=== PATIENT | female | born 1990 | race African-American/Black ===

== ENCOUNTER 2018-02-06 06:13 | Inpatient (IN) | payer OTHER, SELFPAY ==
[2018-02-06] MEDS ORDERED: Ondansetron HCl/PF 4 MG/2 ML Vial IVP PRN (07:01)
[2018-02-06] MEDS ORDERED: Ibuprofen 800 MG TAB PO PRN (07:01)
[2018-02-06] MEDS ORDERED: HYDROcodone/Acetaminophen 5/325 mg Tablet PO PRN ×2 (07:01)
[2018-02-06] MEDS ORDERED: Lidocaine 1% (PF) 30 ML VIAL SC PRN (07:01)
[2018-02-06] MEDS ORDERED: LR / Pitocin 40 units/1000 ml 1,000 ML IV PRN (07:01)
[2018-02-06] MEDS ORDERED: Lactated Ringer's 1,000 ML IV SCH ×2 (07:15)
[2018-02-06] MEDS ORDERED: Lidocaine 1% (PF) 30 ML VIAL ONE (07:18)
[2018-02-06] MEDS ORDERED: LR / Pitocin 40 units/1000 ml 1,000 ML ONE (07:18)
[2018-02-06 07:24] VITALS: BMI 30.1
[2018-02-06 07:33] LABS: Mean Corpuscular HGB CONC 33.5 g/dL (32.0-36.0); Mean Corpuscular Hemoglobin 28.6 pg (27.0-31.0); Mean Corpuscular Volume 85.2 fl (81.0-99.0); Mean Platelet Volume 7.7 fL (7.4-10.4); Platelet Count 197 thou/uL (130-400); RBC Distribution Width 12.3 % (11.5-14.5); Red Blood Cell (RBC) Count 3.84 mill/uL (4.20-5.40)
[2018-02-06 08:06] LABS: Syphilis Antibody Nonreactive (Nonreactive)
[2018-02-06 08:07] LABS: HBSAg Index 0.18 S/CO (0-0.99); Hep B Surf Ag Non-Reactive S/CO (NonReactive)
--- NOTE | 2018-02-06 08:50 | PDOC.LDHP ---
Labor and Delivery H&P Chief complaint: contractions HPI: 27 yo G1 @ 37w6d by 8 week sono who presents in active labor. Antepartum course benign. Current gestational age (weeks): 37 Due date: 02/21/18 Dating criteria: first trimester ultrasound Grav: 1 Para: 0 Current complications: none Abnormal US findings: No Current medications: pre- vitamins Previous surgical history: none Allergies/Adverse Reactions: Allergies Allergy/AdvReac Type Severity Reaction Status Date / Time amoxicillin [From Augmentin] Allergy Verified 02/06/18 07:13 clavulanic acid Allergy Verified 02/06/18 07:13 [From Augmentin] Social history: none - Physical Exam Vital signs reviewed and normal: yes General: NAD Heart: RRR Lungs: nonlabored breathing Abdomen: gravid Extremeties: no edema FHT: category 1 (130s, mod bernard, +accels, no decels) [place] contractions every: q4-5min - Vaginal Exam cm dilated: 7 (AROM clear fluid) Effacement: 100% Station: 1+ - OB Labs Blood type: O RH: positive Antibody Screen: negative HIV: negative RPR: negative HEPSAg: negative 1 hour GCT: unknown GBS: negative Urine drug screen: not done Rubella: immune - Assessment 37w6d IUP Active labor - Plan Plan: admit to L&D, labor augmentation if indicated, informed consent obtained, anesthesia consult for pain management -: AROM clear fluid
--- NOTE | 2018-02-06 11:22 | PDOC.OPDEL ---
OB Operative/Delivery Note Delivery Dr/Surgeon: Vernell Farmer DO Pre-Delivery Diagnosis: active labor Procedure/Post Delivery Dx: spontaneous vaginal delivery Weeks gestation: 37 Anesthesia: local - Findings A Sex: male - 1 min: 9 - 5 min: 9 - Additional Findings/Plan Placenta delivered: spontaneous Repaired Obstetrical Laceration: 2nd degree (and right labia repaired) Estimated blood loss: 200 cc Compilations/Other Findings: Infant delivered in ISSAC position without complication Post delivery plan: routine recovery
[2018-02-06] MEDS ORDERED: Milk Of Magnesia 30 ML UDCUP PO PRN (14:07)
[2018-02-06] MEDS ORDERED: traMADol HCl 50 MG TAB PO PRN (14:07)
[2018-02-06] MEDS ORDERED: Bisacodyl 10 MG SUPP PR PRN (14:07)
[2018-02-06] MEDS ORDERED: Promethazine HCl 25 MG/ML VIAL IM PRN (14:07)
[2018-02-06] MEDS ORDERED: Preparation H Ointment 28 GM TUBE PR PRN (14:07)
[2018-02-06] MEDS ORDERED: Methylergonovine 0.2 MG/ML VIAL IM PRN (14:07)
[2018-02-06] MEDS ORDERED: diphenhydrAMINE 25 MG CAP PO PRN (14:07)
[2018-02-06] MEDS ORDERED: LR / Pitocin 40 units/1000 ml 1,000 ML IV SCH (14:07)
[2018-02-06] MEDS ORDERED: Benzocaine/Menthol 20-0.5% 60 ML CAN TOP PRN (14:07)
[2018-02-06] MEDS ORDERED: Misoprostol 200 MCG TAB VAG SCH (14:15)
[2018-02-06] MEDS: Docusate Calcium (SURFAK) 240 MG CAP PO SCH (20:57)
[2018-02-06] MEDS: Ibuprofen 800 MG TAB PO SCH (20:59)
[2018-02-07] MEDS: Ibuprofen 800 MG TAB PO SCH ×3 (03:59→14:04)
--- NOTE | 2018-02-07 07:30 | PDOC.PP ---
Post Progress Note Post Day #: 1 Subjective: Doing well. Minimal lochia. Pain controlled. Breast feeding. PO intake tolerated: yes Flatus: yes Ambulation: yes Vital Signs (12 hours) Temp Pulse Resp BP BP Pulse Ox 02/07/18 05:15 98.5 F 62 20 108/67 02/07/18 00:00 98.6 F 70 18 106/56 L 02/06/18 20:00 98.1 F 56 L 20 133/71 96 Weight Weight 170 lb - Physical Examination General: NAD Cardiovascular: RRR Respiratory: non-labored breathing Abdominal: no distention, appropriately TTP Fundus firm & at: below umbilicus Extremities: negative homans (B) Neurological: no gross focal deficits Psychiatric: A&Ox3 Result Diagrams: 02/06/18 07:00 Additional Labs: Post Labs Blood Type O POSITIVE 02/06/18 07:00 Hep Bs Antigen Non-Reactive S/CO (NonReactive) 02/06/18 07:00 (1) Spontaneous vaginal delivery Code(s): O80 - ENCOUNTER FOR FULL-TERM UNCOMPLICATED DELIVERY Status: Acute - Assessment/Plan PPD1 Doing well. Stable for discharge pending discharge. F/U PP appt.
[2018-02-07 08:36] VITALS: BP 103/55; TEMP 98.3
[2018-02-07] MEDS: Docusate Calcium (SURFAK) 240 MG CAP PO SCH (08:58)
== END 2018-02-07 17:49 | disposition home or self-care (01) | DRG 775 ==
LOC: L&D/OP 06:13 → L&D 07:37 → 3SW 14:05
PROVIDERS: ADMIT Obstetrics & Gynecology; ATTEND Obstetrics & Gynecology
PROC: 0KQM0ZZ Repair Perineum Muscle, Open Approach (ICD-10-PCS; principal; 2018-02-06)
PROC: 10E0XZZ Delivery of Products of Conception, External Approach (ICD-10-PCS; 2018-02-06)
PROC: 10907ZC Drainage of Amniotic Fluid, Therapeutic from Products of Conception, Via Natural or Artificial Opening (ICD-10-PCS; 2018-02-06)
PROC: 10907ZC Drainage of Amniotic Fluid, Therapeutic from Products of Conception, Via Natural or Artificial Opening (ICD-10-PCS; 2018-02-06)
DX: O70.1 Second degree perineal laceration during delivery (principal); Z37.0 Single live birth; O70.0 First degree perineal laceration during delivery; Z3A.37 37 weeks gestation of pregnancy
CPT/HCPCS: 85027; 86780; 87340; 99285; J2001; J2210